=== PATIENT | male | born 1960 | race Caucasian/White ===

== ENCOUNTER 2019-08-06 18:49 | Emergency (ER) | payer BC ==
[2019-08-06 19:25] VITALS: BP 117/70
--- NOTE | 2019-08-06 19:54 | UC ---
FLU HPI - HPI Summary HPI Summary: 58-year-old male comes in with a chief complaint of fevers chills body aches and sinusitis symptoms. Patient's been having about a week of sinusitis symptoms in the last 24 hours he started with body aches and chills and feeling worse. He started on azithromycin 3 days ago. Rhinorrhea is green. Does have sinus pressure and postnasal drip. Does have some cough and chest congestion but does not feel a lot of congestion in his chest. - History of Current Complaint Chief Complaint: UCRespiratory Stated Complaint: FLU LIKE SYMP Time Seen by Provider: 08/06/19 19:38 Pain Intensity: 5 - Allergy/Home Medications Allergies/Adverse Reactions: Allergies Allergy/AdvReac Type Severity Reaction Status Date / Time oseltamivir [From Tamiflu] Allergy abdominal Verified 08/06/19 19:27 bloating, swelling Home Medications: Home Medications Azithromycin TAB* [Zithromax TAB (Z-DILMA) 250 mg #6 tabs] 2 tab PO .TODAY, THEN 1 DAILY 08/06/19 [History Confirmed 08/06/19] Ibuprofen TAB* [Motrin TAB* 400 MG] 400 mg PO ONCE PRN 08/06/19 [History Confirmed 08/06/19] PMH/Surg Hx/FS Hx/Imm Hx Previously Healthy: Yes - Surgical History Surgical History: None - Family History Known Family History: Positive: Non-Contributory - Social History Alcohol Use: Rare Substance Use Type: None Smoking Status (MU): Light Every Day Tobacco Smoker Type: Cigarettes Amount Used/How Often: 1/2 pk daily Review of Systems All Other Systems Reviewed And Are Negative: Yes Constitutional: Positive: Other - SEE HPI Skin: Positive: Negative Eyes: Positive: Negative ENT: Positive: Sore Throat, Nasal Discharge, Sinus Congestion, Sinus Pain/ Tenderness Respiratory: Positive: Cough, Other - SEE HPI Cardiovascular: Positive: Negative Gastrointestinal: Positive: Negative Motor: Positive: Negative Neurovascular: Positive: Negative Musculoskeletal: Positive: Negative Neurological: Positive: Negative Psychological: Positive: Negative Is Patient Immunocompromised?: No Physical Exam Triage Information Reviewed: Yes Appearance: No Pain Distress, Well-Nourished, Ill-Appearing - MILD Vital Signs: Initial Vital Signs Temp 98.6 F 08/06/19 19:21 Pulse 90 08/06/19 19:21 Resp 28 01/29/20 19:21 BP 117/70 08/06/19 19:21 Pulse Ox 98 08/06/19 19:21 Vital Signs Reviewed: Yes Eye Exam: Normal Eyes: Positive: Conjunctiva Clear ENT: Positive: Pharyngeal erythema, Nasal congestion, Nasal drainage, TMs normal Neck: Positive: Supple Respiratory: Positive: Lungs clear, Normal breath sounds, No respiratory distress Cardiovascular: Positive: RRR Musculoskeletal: Positive: Strength Intact, ROM Intact Neurological: Positive: Alert, Muscle Tone Normal Psychological: Positive: Age Appropriate Behavior Skin Exam: Normal Flu Course/Dx - Course Course Of Treatment: Clinically the patient has both sinusitis and influenza. He is allergic to Tamiflu so we will not be using that. Patient requests to be switched to a different antibiotic than that azithromycin is on now. He reports that Augmentin makes him very sick. He reports that any erythromycin does not work for him. Patient reports that Cipro is working the past with the sinusitis however because of the risk of tendon injury I recommended against Cipro. We' ll start Omnicef and have the patient follow-up his primary care doctor get reevaluated sooner if worsening questions or concerns. - Differential Dx/Diagnosis Provider Diagnosis: Sinusitis Discharge ED - Sign-Out/Discharge Documenting (check all that apply): Patient Departure All imaging exams completed and their final reports reviewed: No Studies - Discharge Plan Condition: Stable Disposition: HOME Prescriptions: Cefdinir cap* [Cefdinir 300 MG cap (NF)] 300 mg PO BID #18 cap Patient Education Materials: Sinusitis (ED), Influenza (ED) Referrals: Bar Rico MD [Primary Care Provider] - Additional Instructions: FOLLOW UP WITH YOUR DOCTOR IF NOT COMPLETELY IMPROVED. GET REEVALUATED SOONER IF NOT IMPROVING OR WORSE OR ANY QUESTIONS OR CONCERNS. - Billing Disposition and Condition Condition: STABLE Disposition: Home
[2019-08-06 19:58] LABS: Influenza A Molecular POSITIVE (Negative)
[2019-08-06] MEDS ORDERED: Cefdinir cap* 300 MG CAP PO ONE (20:12)
== END 2019-08-06 20:25 | disposition home or self-care (01) ==
LOC: UCCORT 18:49
DX: J32.9 Chronic sinusitis, unspecified (principal); F17.210 Nicotine dependence, cigarettes, uncomplicated; J39.2 Other diseases of pharynx; R09.81 Nasal congestion; R09.82 Postnasal drip; Z88.8 Allergy status to other drugs, medicaments and biological substances
CPT/HCPCS: 99202; A9270-GY; G0463

== ENCOUNTER 2019-08-10 15:06 | Emergency (ER) | payer BC ==
[2019-08-10 17:04] VITALS: BP 104/69
--- NOTE | 2019-08-10 17:32 | UC ---
Throat Pain/Nasal Chaz HPI - HPI Summary HPI Summary: Pt presents with c/o cough, nasal congestion that is not "getting any better". Pt was diagnosed with flu and sinus infection and given antibiotics on 08/06/19 Pt states that he was given antibiotics but he is not getting better. Pt is currently taking cefdinir. - History of Current Complaint Chief Complaint: UCGeneralIllness Stated Complaint: COLD SYMP(NO BETTER) Time Seen by Provider: 08/10/19 17:08 Hx Obtained From: Patient Onset/Duration: Gradual Onset, Lasting Days, Still Present Severity: Mild Pain Intensity: 0 Cough: Productive - Epiglottits Risk Factors Epiglottis Risk Factors: Negative - Allergies/Home Medications Allergies/Adverse Reactions: Allergies Allergy/AdvReac Type Severity Reaction Status Date / Time oseltamivir [From Tamiflu] Allergy abdominal Verified 08/10/19 16:59 bloating, swelling PMH/Surg Hx/FS Hx/Imm Hx Previously Healthy: Yes - Surgical History Surgical History: None - Family History Known Family History: Positive: Cardiac Disease, Non-Contributory - Social History Occupation: Employed Full-time Lives: With Family Alcohol Use: Rare Substance Use Type: None Smoking Status (MU): Light Every Day Tobacco Smoker Type: Cigarettes Amount Used/How Often: 1/2 pack/week Have You Smoked in the Last Year: Yes Review of Systems All Other Systems Reviewed And Are Negative: Yes Constitutional: Positive: Fatigue Skin: Positive: Negative Eyes: Positive: Negative ENT: Positive: Sinus Congestion Respiratory: Positive: Cough Cardiovascular: Positive: Negative Gastrointestinal: Positive: Negative Genitourinary: Positive: Negative Motor: Positive: Negative Neurovascular: Positive: Negative Musculoskeletal: Positive: Negative, Myalgia Neurological: Positive: Negative Psychological: Positive: Negative Is Patient Immunocompromised?: No Physical Exam Triage Information Reviewed: Yes Appearance: Well-Appearing Vital Signs: Initial Vital Signs Temp 97.3 F 08/10/19 16:59 Pulse 79 08/10/19 16:59 Resp 16 08/10/19 16:59 BP 104/69 08/10/19 16:59 Pulse Ox 95 08/10/19 16:59 Vital Signs Reviewed: Yes Eye Exam: Normal ENT: Positive: Nasal congestion, Other - right ear canal has cerumen. large hard cerumen "ball" removed. Dental Exam: Normal Neck exam: Normal Respiratory Exam: Other Respiratory: Positive: Decreased breath sounds Cardiovascular Exam: Normal Musculoskeletal Exam: Normal Neurological Exam: Normal Psychological Exam: Normal Skin Exam: Normal Diagnostics - Radiology No standard instances Radiology Interpretation Completed By: Radiologist - negative. Recommended for annual low dose CT due to smokin ghx. Throat Pain/Nasal Course/Dx - Differential Dx/Diagnosis Differential Diagnosis/HQI/PQRI: Influenza, Pharyngitis, Sinusitis, Other - pneumonia Provider Diagnosis: Viral syndrome Discharge ED - Sign-Out/Discharge Documenting (check all that apply): Patient Departure All imaging exams completed and their final reports reviewed: Yes - Discharge Plan Condition: Stable Disposition: HOME Prescriptions: Albuterol HFA INHALER* [Ventolin HFA Inhaler*] 1 - 2 puff INH Q4H PRN #1 mdi PRN Reason: Sob/Wheezing Guaifenesin/Pseudoephedrne HCl [Mucinex D ER 600-60 mg Tablet] 1 each PO Q12H # 14 tab.er.12h predniSONE 10 mg TAB [Deltasone 10 MG TAB*] 30 mg PO DAILY #18 tab Patient Education Materials: Viral Syndrome (ED), Acute Cough (ED) Referrals: Bar Rico MD [Primary Care Provider] - As Soon As Possible Additional Instructions: Please follow up with your PCP as soon as possibe if your symptoms do not improve or the - Billing Disposition and Condition Condition: STABLE Disposition: Home
== END 2019-08-10 18:12 | disposition home or self-care (01) ==
LOC: UCCORT 15:06
DX: B34.9 Viral infection, unspecified (principal); R05 Cough; R09.81 Nasal congestion; R53.83 Other fatigue; F17.210 Nicotine dependence, cigarettes, uncomplicated; Z88.8 Allergy status to other drugs, medicaments and biological substances
CPT/HCPCS: 71046; 99212; G0463